=== PATIENT | male | born 1990 | race Caucasian/White ===

== ENCOUNTER 2020-05-10 10:12 | Emergency (ER) | payer SELFPAY ==
--- NOTE | ~2020-05-10 | CT_ITS ---
EXAMINATION: CT brain wo con EXAM DATE: 05/10/2020 11:32 INDICATION: Headache. TECHNIQUE: Spiral CT of the head was performed without contrast. Axial, coronal and sagittal images were reviewed. The dose-length product (DLP) for this examination was 605.33 mGy-cm. The exposure w as tailored according to patient size, and iterative reconstruction (ASIR) was used as additional dos e reduction technique. There is no prior study for comparison. FINDINGS: There is no acute intraparenchymal hemorrhage. No evidence of intraparenchymal brain mass lesion. No evidence of acute infarction. There is no mass effect or midline shift. The ventricles are normal in size. There are no extra-axial collections. There are no acute calvarial fractures. T he orbits are unremarkable. Soft tissue is unremarkable. The visualized sinuses and mastoid air w[place] ls are well aerated. IMPRESSION: 1. Unremarkable head CT examination. Reviewed, dictated and finalized at location A. EXAMINER
[2020-05-10 10:17] VITALS: BP 178/127; PULSE 106; RESP 18; TEMP 36.6; O2SAT 99
[2020-05-10 12:11] LABS: Basophils Absolute Auto 0.1 K/mm3 (0.0-0.1); Basophils Percent Auto 0.9 % (0.2-1.2); Eosinophils Absolute Auto 0.1 K/mm3 (0-0.3); Hematocrit 51.3 % (42.0-52.0); Hemoglobin 17.4 g/dL (14.0-18.0); Immature Granulocyte Absolute 0.14 K/mm3 (0.00-0.031); Immature Granulocyte Percent A 1.3 % (0-0.5); Lymphocytes Absolute Auto 1.98 K/mm3 (0.9-3.2); Lymphocytes Percent Auto 17.8 % (18.3-44.2); Mean Corpuscular HGB Conc 33.9 g/dl (32-36); Mean Corpuscular Hemoglobin 28.9 pg (26-34); Mean Corpuscular Volume 85.2 fl (80-100); Mean Platelet Volume 10.1 fl (7.4-10.4); Monocytes Absolute Auto 0.9 K/mm3 (0.1-0.6); Monocytes Percent Auto 8.1 % (2.6-8.5); Neutrophils Absolute Auto 7.9 K/mm3 (1.3-6.7); Neutrophils Percent Auto 70.9 % (45.5-73.1); Platelet Count Result 248 k/mm3 (150-375); Red Blood Count 6.02 M/mm3 (4.6-6.20); Red Cell Distribution Width 13.1 % (11.5-14.5); White Blood Count 11.1 K/mm3 (4.5-10.0)
[2020-05-10 12:24] LABS: Alanine Aminotransferase 34 U/L (4-50); Albumin Level 4.2 g/dL (3.5-5.1); Alkaline Phosphatase 54 U/L (38-126); Anion Gap 7 mmol/L (8-16); Aspartate Amino Transferase 38 U/L (17-59); Bilirubin,Total 0.7 mg/dL (0.2-1.3); Blood Urea Nitrogen 15 mg/dL (9-20); Calcium 9.3 mg/dL (8.4-10.2); Carbon Dioxide 27 mmol/L (22-30); Chloride 103 mmol/L (98-107); Estimated CRCL calculation 92 ml/min; Estimated Glomerular Filt Rate > 60; Glucose 110 mg/dL (75-110); Potassium 3.4 mmol/L (3.4-5.0); Sodium 137 mmol/L (137-145)
--- NOTE | 2020-05-10 12:49 | ED.GENADULT ---
HPI - General Adult General Chief complaint: Unspecified Stated complaint: growth on my head Time Seen by Provider: 05/10/20 11:14 Source: RN notes reviewed History of Present Illness HPI narrative: Patient presents to emergency department from home for feeling of bugs crawling under his skin he states that today he noted swelling over his right lateral scalp and when he lifted the skin he seemed to notice things that appeared like veins but seem to be moving under his skin the patient states he has been having issues with this for the last several weeks he states that initially it had felt like something was crawling inside his nose and underneath his eye with fluttering his eyelids he states he went to [facility] twice for this with a negative work-up states since several days ago he had felt like something was crawling under his abdomen and his chest and had gone to the hospital with a normal work-up. Patient states that the symptoms began today he denies any fevers or chills vision changes chest pain shortness of breath nausea vomiting or any other symptoms Related Data Home Medications Medication Instructions Recorded Confirmed No Home Medications 05/10/20 05/10/20 Allergies Allergy/AdvReac Type Severity Reaction Status Date / Time No Known Allergies Allergy Unverified 09/29/11 12:43 Review of Systems Review of Systems: Narrative: Gen.: Denies fevers or chills Eyes: Denies eye pain or visual change ENT: Denies congestion Respiratory: Denies shortness of breath or cough CV: Denies chest pain or palpitations GI: Denies abdominal pain nausea, emesis or diarrhea Musculoskeletal: Denies back pain or muscle pain Neuro: Denies numbness, tingling, weakness or focal weakness Skin: See HPI Except as documented, all other systems reviewed and negative PMF Past Medical History Medical History (Updated 05/10/20 @ 12:59 by Jonathan Diaz DO) Patient denies significant medical history Social History Social History (Updated 05/10/20 @ 12:56 by Jonathan Diaz DO) Smoking status: Never smoker Gender identity (if verbalized by the patient): Male Exam Narrative: Exam Narrative: APPEARANCE: No acute distress, nontoxic, resting in bed EYES: EOMI PERRL HEENT: Normocephalic, atraumatic, no swelling of scalp noted TMs clear bilaterally nares patent no foreign body seen in nares oral mucosa moist RESPIRATORY: No respiratory distress Clear to auscultation bilaterally with no rhonchi wheezing or rales. CARDIOVASCULAR: Regular rate and rhythm without murmurs rubs or gallops. ABDOMINAL: Soft, nontender, nondistended, no rebound or guarding MUSCULOSKELETAl: Moves all extremities. No clubbing, cyanosis or edema. NEURO: Awake and alert. Following commands, speech normal, no focal deficits SKIN:: Warm, dry. No rashes lesions or abrasions there is no signs of rash there is no swelling of the scalp and no wound seen over the patient's right cheek he does have small area of dry skin with mild redness but no signs of infection PSYCHIATRIC: Normal affect/mood, Course Course Emergency Course: Discussed with patient results of workup and diagnosis. Discussed need for follow-up with primary care, proper use of medication, and reasons to return to the emergency department. Patient understands and agrees to current treatment plan Vital Signs Vital signs: Vital Signs Temperature 97.8 F 05/10/20 10:17 Pulse Rate 106 H 05/10/20 10:17 Respiratory Rate 18 05/10/20 10:17 Blood Pressure 178/127 H 05/10/20 10:17 Pulse Oximetry 99 05/10/20 10:17 Temperature 97.8 F 05/10/20 10:17 Pulse Rate 106 H 05/10/20 10:17 Respiratory Rate 18 05/10/20 10:17 Blood Pressure 178/127 H 05/10/20 10:17 Pulse Oximetry 99 05/10/20 10:17 Medical Decision Making [facility] Narrative Medical decision making narrative: Patient with feeling of bugs coming under skin work-up in the emergency department is normal with normal blood work as we
== END 2020-05-10 13:20 | disposition home or self-care (01) ==
PROVIDERS: Emergency Provider Emergency Medicine
DX: L98.9 Disorder of the skin and subcutaneous tissue, unspecified (principal)
CPT/HCPCS: 36415; 70450; 80053; 85025; 99284